=== PATIENT | male | born 1990 | race Two or more races ===

== ENCOUNTER 2019-09-24 21:22 | Emergency (ER) | payer OTHER ==
[~2019-09-24] VITALS: Ht 172.7 cm; Wt 95.3 kg
[2019-09-24 21:35] VITALS: BP 147/88
--- NOTE | 2019-09-24 21:35 | NUR ---
TO BED # 04 AMBULATORY
[2019-09-24 21:45] VITALS: BP 147/88
--- NOTE | 2019-09-24 21:45 | NUR ---
28 Y/O M PRESENTS TO ED WITH C/O LT SIDED MOUTH PAIN X1 DAY. TENDER TO TOUCH. MILD EDEMA PRESENTS TO LT LOWER MOLAR. PT STATES HE WAS GOING TO THE DENTIST ON FRIDAY BUT PAIN WAS TOO MUCH. BEDRAILX1 UP. FAMILY AT BEDSIDE. WILL CONTINUE TO MONITOR.
[2019-09-24] MEDS ORDERED: IBUPROFEN 800 MG TAB PO ONE (21:55)
[2019-09-24] MEDS ORDERED: AMOXICILLIN 500 MG CAP PO ONE (21:55)
--- NOTE | 2019-09-24 22:14 | NUR ---
Patient discharged with v/s stable. Written and verbal after care instructions given and explained. Patient alert, oriented and verbalized understanding of instructions. Ambulatory with steady gait. All questions addressed prior to discharge. ID band removed. Patient advised to follow up with PMD. Rx of AMOXCILLIN AND MOTRIN given. Patient educated on indication of medication including possible reaction and side effects. Opportunity to ask questions provided and answered.
== END 2019-09-24 22:14 | disposition home or self-care (01) ==
LOC: MED 21:22
DX: K08.89 Other specified disorders of teeth and supporting structures (principal); R03.0 Elevated blood-pressure reading, without diagnosis of hypertension
CPT/HCPCS: 99283